=== PATIENT | female | born 1935 | race Caucasian/White ===

== ENCOUNTER 2016-12-29 09:03 | Emergency (ER) | payer MEDICARE ==
[2016-12-29] MEDS ORDERED: SODIUM CHLORIDE 0.9% 1,000 ML ONE (11:57)
== END 2016-12-29 21:20 | disposition home or self-care (01) ==
LOC: ER 09:03
DX: N39.0 Urinary tract infection, site not specified (principal); N19 Unspecified kidney failure; Z79.899 Other long term (current) drug therapy
CPT/HCPCS: 36415; 80053; 81001; 85025; 87077; 87088; 87186; 96360